=== PATIENT | female | born 1975 | race Caucasian/White ===

== ENCOUNTER 2019-10-02 09:13 | Day surgery (SDC) | payer BC ==
[2019-10-02] MEDS ORDERED: Sodium Chloride 0.9% 1,000 ML IV SCH (10:30)
[2019-10-02] MEDS ORDERED: fentaNYL 100 MCG/2 ML SDV ONE (10:38)
[2019-10-02] MEDS ORDERED: Propofol 200 MG/20 ML SDV ONE (10:38)
[2019-10-02] MEDS ORDERED: Midazolam 1 MG/ML 2 ML SDV ONE (10:39)
--- NOTE | 2019-10-02 16:50 | OR ---
DATE OF PROCEDURE: 10/02/2019 SURGEON: Hakan Kerr MD PROCEDURE: Colonoscopy. FINDINGS: Normal colonoscopy. PREOPERATIVE DIAGNOSIS: Screening colonoscopy. POSTOPERATIVE DIAGNOSIS: Screening colonoscopy. RISKS: Risks, benefits, alternatives, and limitations including, but not limited to infection, bleeding, and perforation were explained to the patient who wished to proceed. PROCEDURE IN DETAIL: The patient was placed in a left lateral decubitus position. Digital rectal exam was performed without abnormality. Scope was introduced and advanced atraumatically to the ileocecal valve. A photo was taken of this. Scope was brought back to the ascending, transverse, descending colon, and retroflexed. No evidence of old or new blood. No masses. No polyps. No colitis or other abnormalities. No abnormalities on retroflexion. The patient tolerated the procedure well. aHkan Kerr MD /[id number]
== END 2019-10-02 12:06 | disposition home or self-care (01) ==
LOC: JP.SDS 09:13
PROVIDERS: ATTEND Surgery
DX: Z12.11 Encounter for screening for malignant neoplasm of colon (principal); Z80.0 Family history of malignant neoplasm of digestive organs
CPT/HCPCS: 45378; 81025; J2250; J2704; J3010; J7030

== ENCOUNTER 2021-08-10 06:58 | Day surgery (SDC) | payer BC ==
[2021-08-10] MEDS ORDERED: Lidocaine 1% with EPINEPHrine 1:100,000 50 ML MDV ONE (07:00)
[2021-08-10] MEDS ORDERED: Bupivacaine 0.5% 50 ML MDV ONE (07:00)
[2021-08-10] MEDS ORDERED: Neostigmine Methylsulfate 1 MG/ML 5 ML Syringe ONE (07:21)
[2021-08-10] MEDS ORDERED: Ondansetron 4 MG/2 ML SDV ONE (07:21)
[2021-08-10] MEDS ORDERED: Succinylcholine 200 MG/10 ML MDV ONE (07:21)
[2021-08-10] MEDS ORDERED: Glycopyrrolate 0.2 MG/ML 5 ML MDV ONE (07:21)
[2021-08-10] MEDS ORDERED: Rocuronium 50 MG/5 ML Vial ONE (07:21)
[2021-08-10] MEDS ORDERED: Dexamethasone 4 MG/ML SDV ONE (07:21)
[2021-08-10] MEDS ORDERED: Propofol 200 MG/20 ML SDV ONE (07:21)
[2021-08-10] MEDS ORDERED: fentaNYL 250 MCG/5 ML SDV ONE (07:22)
[2021-08-10] MEDS ORDERED: Sodium Chloride 0.9% 1,000 ML IV SCH (07:30)
[2021-08-10] MEDS ORDERED: ceFAZolin 2 GM in Premix Bag 1 BAG IV ONE (08:00)
[2021-08-10] MEDS ORDERED: metroNIDAZOLE/Normal Saline 500 MG in Premix Bag 1 BAG IV ONE (08:00)
[2021-08-10] MEDS ORDERED: Ropivacaine 46 ML, dexAMETHasone 8 MG, EPINEPHrine 0.4 MG, Sodium Chloride 0.9% 31.6 ML NERVRT SCH ×4 (08:25)
[2021-08-10] MEDS ORDERED: hydrOXYzine HCL 100 MG/2 ML SDV IM PRN (08:35)
[2021-08-10] MEDS ORDERED: Ketorolac 30 MG/ML SDV ONE (08:35)
[2021-08-10] MEDS ORDERED: fentaNYL 100 MCG/2 ML SDV IVPUSH PRN ×3 (08:35)
[2021-08-10] MEDS ORDERED: Ondansetron 4 MG/2 ML SDV IVPUSH PRN (08:35)
[2021-08-10] MEDS ORDERED: Acetaminophen/HYDROcodone 325-5 MG Tab PO PRN (08:35)
[2021-08-10] MEDS ORDERED: Zolpidem 5 MG Tab PO PRN (08:35)
[2021-08-10] MEDS ORDERED: Scopolamine 1.5 MG Transdermal Patch TOP ONE (08:35)
[2021-08-10] MEDS ORDERED: Docusate Sodium 100 MG Cap PO PRN (08:35)
[2021-08-10] MEDS ORDERED: Benzocaine/Cetylpyridinium/Menthol Lozenge MUCMEM PRN (08:35)
[2021-08-10] MEDS ORDERED: fentaNYL 100 MCG/2 ML SDV ONE (08:39)
[2021-08-10] MEDS ORDERED: VERIFY SCOP PATCH TOP SCH (12:00)
== END 2021-08-10 13:18 | disposition home or self-care (01) ==
LOC: JP.SDS 06:58
PROVIDERS: ATTEND Surgery
DX: K80.10 Calculus of gallbladder with chronic cholecystitis without obstruction (principal); K76.89 Other specified diseases of liver; Z01.812 Encounter for preprocedural laboratory examination; Z20.822 Contact with and (suspected) exposure to COVID-19
CPT/HCPCS: 36415; 47562; 80053; 84703; 85027; 87635; A9270; J0171; J0330; J0690; J1100; J1885; J2405; J2704; J2710; J2795; J3010; J3490; 88304; U0002

== ENCOUNTER 2022-10-23 19:28 | Emergency (ER) | payer BC ==
[2022-10-23] MEDS ORDERED: Bacitracin Oint 1 GM U/D Packet TOP ONE (20:45)
[2022-10-23] MEDS ORDERED: Lidocaine 1% 10 ML MDV INJECT ONE (20:45)
== END 2022-10-23 23:30 | disposition home or self-care (01) ==
LOC: JP.ED 19:28
DX: S62.634A Displaced fracture of distal phalanx of right ring finger, initial encounter for closed fracture (principal); Z79.899 Other long term (current) drug therapy; W23.1XXA Caught, crushed, jammed, or pinched between stationary objects, initial encounter
CPT/HCPCS: 12001; 73140-26-F3; 73140-F3; 99283